=== PATIENT | male | born 1990 | race Caucasian/White ===

== ENCOUNTER 2017-11-26 13:11 | Emergency (ER) | payer OTHER | END 2017-11-26 13:56 | disposition home or self-care (01) | LOC: FTE 13:11 → E/R 13:56 | DX: R21 Rash and other nonspecific skin eruption (principal) | CPT/HCPCS: 99283 ==

== ENCOUNTER 2017-11-30 10:45 | Emergency (ER) | payer OTHER ==
[2017-11-30] MEDS: DIPHENHYDRAMINE 50 MG INJ IV (13:36)
[2017-11-30] MEDS: METHYLPREDNISOLONE 125 MG INJ IV (13:36)
[2017-11-30] MEDS: FAMOTIDINE 20 MG INJ IV (13:36)
[2017-11-30] MEDS: EPINEPHrine 1 MG INJ SC ×2 (13:37→17:18)
[2017-11-30 17:23] LABS: ADD MAN DIFF? NO
[2017-11-30 17:25] LABS: BASOPHIL # 0.1 10^3/ul (0.0-0.1); BASOPHILS % 0.3 % (0.0-2.0); EOSINOPHILS # 0.1 10^3/ul (0.0-0.5); EOSINOPHILS % 0.5 % (0.0-7.0); HEMATOCRIT 45.4 % (42.0-52.0); HEMOGLOBIN 16.1 g/dl (14.0-18.0); LYMPHOCYTES # 0.8 10^3/ul (0.8-2.9); LYMPHOCYTES % 4.4 % (15.0-51.0); MEAN CORPUSCULAR HEMOGLOBIN 32.4 pg (29.0-33.0); MEAN CORPUSCULAR HGB CONC 35.5 g/dl (32.0-37.0); MEAN CORPUSCULAR VOLUME 91.3 fl (82.0-101.0); MEAN PLATELET VOLUME 11.3 fl (7.4-10.4); MONOCYTE # 0.2 10^3/ul (0.3-0.9); MONOCYTES % 0.9 % (0.0-11.0); PLATELET COUNT 211 10^3/UL (140-415); RED BLOOD COUNT 4.97 10^6/ul (4.70-6.10); RED CELL DISTRIBUTION WIDTH 11.1 % (11.5-14.5)
[2017-11-30 17:25] LABS: WHITE BLOOD COUNT 17.2 10^3/ul (4.8-10.8)
[2017-11-30 17:45] LABS: ALANINE AMINOTRANSFERASE 30 IU/L (13-69); ALBUMIN 4.4 g/dl (3.3-4.9); ALBUMIN/GLOBULIN RATIO 1.51; ALKALINE PHOSPHATASE 66 IU/L (42-121); ANION GAP 14 (8-16); ASPARTATE AMINO TRANSFERASE 18 IU/L (15-46); BILIRUBIN,INDIRECT 0.5 mg/dl (0-1.1); BILIRUBIN,TOTAL 0.5 mg/dl (0.2-1.3); BLOOD UREA NITROGEN 14 mg/dl (7-20); CALCIUM 8.8 mg/dl (8.4-10.2); CARBON DIOXIDE 29 mmol/L (21-31); CHLORIDE 104 mmol/L (97-110); CREATININE 1.02 mg/dl (0.61-1.24); GLUCOSE 121 mg/dl (70-220); POTASSIUM 4.1 mmol/L (3.5-5.1); SODIUM 143 mmol/L (135-144); TOTAL PROTEIN 7.3 g/dl (6.1-8.1)
== END 2017-11-30 19:38 | disposition home or self-care (01) ==
LOC: FTE 10:45
DX: R21 Rash and other nonspecific skin eruption (principal)
CPT/HCPCS: 80053; 85025; 96372; 96374; 96375; 99284-25